=== PATIENT | female | born 1940 | race Caucasian/White ===

== ENCOUNTER 2017-08-10 13:50 | Emergency (ER) | payer MEDICARE, OTHER ==
[~2017-08-10] VITALS: Ht 152.4 cm; Wt 72.7 kg
[~2017-08-10 13:50] MED LIST: DILT240C94 PO; HYDR-569 PO; METH2.5T PO; RIVA1TAB PO
[2017-08-10] MEDS ORDERED: morphine 5 MG/ML injection IM ONE (15:25)
[2017-08-10] MEDS ORDERED: TETanus/Pertussis (Acell)/Diphther VAC/PF (Tdap-Adult) 0.5ml syringe IMVAC ONE (15:40)
[2017-08-10] MEDS ORDERED: HYDROmorphone 1 mg/ml syringe IV ONE (16:40)
[2017-08-10] MEDS ORDERED: HYDROmorphone inj. 0.5 MG/0.5 ML DISP.SYRIN ONE (17:17)
[2017-08-10 17:45] VITALS: BP 150/61
== END 2017-08-10 17:50 | disposition home or self-care (01) ==
LOC: ER 13:51
DX: S42.294A Other nondisplaced fracture of upper end of right humerus, initial encounter for closed fracture (principal); S42.252A Displaced fracture of greater tuberosity of left humerus, initial encounter for closed fracture; S00.31XA Abrasion of nose, initial encounter; G89.29 Other chronic pain; M54.9 Dorsalgia, unspecified; Z88.8 Allergy status to other drugs, medicaments and biological substances; Z88.0 Allergy status to penicillin; Z79.899 Other long term (current) drug therapy; W18.09XA Striking against other object with subsequent fall, initial encounter; Y93.01 Activity, walking, marching and hiking; Y92.89 Other specified places as the place of occurrence of the external cause; Y99.9 Unspecified external cause status
CPT/HCPCS: 29105; 73020; 96374; 96375; 99284; A4565; J1170; J2270; 90715

== ENCOUNTER 2017-08-22 10:47 | Outpatient (CLI) | payer MEDICARE, OTHER ==
[2017-08-22 11:21] VITALS: BP 137/68
== END 2017-08-22 12:20 | disposition home or self-care (01) ==
LOC: ORTHO 10:47
PROVIDERS: ATTEND Nurse Practitioner Family
DX: S42.212A Unspecified displaced fracture of surgical neck of left humerus, initial encounter for closed fracture (principal); S42.214A Unspecified nondisplaced fracture of surgical neck of right humerus, initial encounter for closed fracture; G89.29 Other chronic pain; I48.91 Unspecified atrial fibrillation; Z88.0 Allergy status to penicillin; Z88.8 Allergy status to other drugs, medicaments and biological substances; X58.XXXA Exposure to other specified factors, initial encounter; Y93.89 Activity, other specified; Y92.89 Other specified places as the place of occurrence of the external cause; Y99.8 Other external cause status
CPT/HCPCS: 73030

== ENCOUNTER 2017-09-01 08:24 | Inpatient (IN) | payer MEDICARE, OTHER ==
[~2017-09-01] VITALS: Ht 154.9 cm; Wt 82.4 kg
[2017-09-01] VITALS (21 sets, daily range): BP systolic 123–169; BP diastolic 57–78
[2017-09-01] MEDS ORDERED: HYDROmorphone 2mg/ml vial IV PRN (08:45)
[2017-09-01] MEDS ORDERED: normal saline 1000ML IV soln IVB ONE ×2 (09:10→10:30)
[2017-09-01] MEDS ORDERED: diltiazem 5mg/ml 5ml inj. IV ONE (09:50)
[2017-09-01 09:54] LABS: MEAN CORPUSCULAR HEMOGLOBIN 37.4 PG (27.0-31.0); MEAN CORPUSCULAR HGB CONC 35.1 % (33.0-36.5); MEAN CORPUSCULAR VOLUME 106.5 FL (78-98); MEAN PLATELET VOLUME 9.9 FL (7.4-10.4); RED BLOOD COUNT 1.24 X10'6 (4.20-5.60); RED CELL DISTRIBUTION WIDTH 15.3 % (11.5-14.5)
[2017-09-01 10:10] LABS: HEMATOCRIT 13.2 % (35.0-45.0); HEMOGLOBIN 4.6 g/dl (12.0-16.0); PLATELET COUNT 13 X10'3 (140-440)
[2017-09-01 10:16] LABS: CLARITY,URINE CLEAR (Clear); GLUCOSE, URINE NEGATIVE (Neg); KETONES,URINE NEGATIVE (Neg); LEUKOCYTE ESTERASE ,URINE NEGATIVE (Neg); NITRITES, URINE NEGATIVE (Neg); OCCULT BLOOD,URINE NEGATIVE (Neg); PROTEIN,URINE NEGATIVE (Neg)
[2017-09-01 10:19] LABS: COLOR,URINE DARK YELLOW (Yellow); UA COLLECTION TYPE STRAIGHT CATH
[2017-09-01 10:21] LABS: ALANINE AMINOTRANSFERASE 18 U/L (12-78); ALBUMIN/GLOBULIN RATIO 0.6 (1.1-1.5); ALKALINE PHOSPHATASE 89 IU/L (46-116); ANION GAP 4 (8-16); ASPARTATE AMINO TRANSFERASE 23 U/L (10-37); BILIRUBIN,TOTAL 1.3 MG/DL (0.1-1.0); BLOOD UREA NITROGEN 44 MG/DL (7-18); BUN/CREATININE RATIO 36.7 (6.6-38.0); CALCIUM 7.8 MG/DL (8.5-10.1); CHLORIDE 105 MMOL/L (99-107); GLUCOSE 150 MG/DL (70-104); POTASSIUM 4.6 MMOL/L (3.5-5.1); SODIUM 141 MMOL/L (135-145); TOTAL CARBON DIOXIDE 31.9 MMOL/L (24-32); TOTAL PROTEIN 5.6 G/DL (6.4-8.2); eGFR 44 ML/MIN
[2017-09-01 10:36] LABS: TOTAL CELLS COUNTED 100
[2017-09-01 10:38] LABS: ANISOCYTOSIS 1+; ELLIPTOCYTES 1+; HYPOCHROMASIA 1+; PLATELET ESTIMATE DECREASED; POLYCHROMASIA FEW; TEAR DROP CELLS 1+
[2017-09-01 11:29] LABS: BASOPHILS % (AUTO) 0.3 % (0-1); EOSINOPHILS # (AUTO) 0.1 X10'3 (0-0.9); EOSINOPHILS % (AUTO) 9.7 % (0-6); LYMPHOCYTES # (AUTO) 0.4 X10'3 (1.1-4.8); LYMPHOCYTES % (AUTO) 44.1 % (21-51); MEAN CORPUSCULAR HEMOGLOBIN 37.1 PG (27.0-31.0); MEAN CORPUSCULAR HGB CONC 34.8 % (33.0-36.5); MEAN CORPUSCULAR VOLUME 106.6 FL (78-98); MEAN PLATELET VOLUME 9.8 FL (7.4-10.4); MONOCYTES % (AUTO) 0.8 % (2-12); NEUTROPHILS # (AUTO) 0.4 X10'3 (1.8-7.7); NEUTROPHILS % (AUTO) 45.1 % (42-75); RED CELL DISTRIBUTION WIDTH 16.7 % (11.5-14.5)
[2017-09-01 11:32] LABS: HEMATOCRIT 13.9 % (35.0-45.0); HEMOGLOBIN 4.8 g/dl (12.0-16.0); PLATELET COUNT 14 X10'3 (140-440)
[2017-09-01] MEDS ORDERED: ondansetron/PF 4mg/2ml inj IV PRN (11:55)
[2017-09-01] MEDS ORDERED: potassium Cl 40MEQ/NS 500ml 500 ML IV PRN ×2 (11:55)
[2017-09-01] MEDS ORDERED: acetaminophen 325mg tablet PO PRN (11:55)
[2017-09-01] MEDS ORDERED: potassium Cl 20 mEq SR tablet PO PRN ×2 (11:55)
[2017-09-01] MEDS ORDERED: HYDROmorphone 2mg/ml vial IV ONE (12:00)
[2017-09-01] MEDS ORDERED: SOTA80TA PO (12:32)
[2017-09-01] MEDS ORDERED: HYDR-565 PO (12:32)
[2017-09-01 13:23] LABS: OCCULT BLOOD STOOL POSITIVE (Neg)
[2017-09-01] MEDS: normal saline 1000ml 1,000 ML IV SCH (13:25)
[2017-09-01] MEDS: morphine 2 MG/ML inj. syringe IV PRN ×5 (14:07→23:06)
[2017-09-01] MEDS: TBO-filgrastim 480 MCG/0.8ml syringe SQ SCH (17:48)
[2017-09-01] MEDS: HYDROcodone/acetaminophen 5mg/325mg tablet PO SCH (20:50)
[2017-09-01] MEDS: docusate sod 100mg capsule PO SCH (20:50)
[2017-09-01 21:30] LABS: MEAN CORPUSCULAR HEMOGLOBIN 34.2 PG (27.0-31.0); MEAN CORPUSCULAR HGB CONC 35.6 % (33.0-36.5); MEAN PLATELET VOLUME 7.4 FL (7.4-10.4); PLATELET COUNT 63 X10'3 (140-440); RED BLOOD COUNT 2.02 X10'6 (4.20-5.60); RED CELL DISTRIBUTION WIDTH 18.4 % (11.5-14.5)
[2017-09-01 21:39] LABS: HEMATOCRIT 19.4 % (35.0-45.0); HEMOGLOBIN 6.9 g/dl (12.0-16.0); WHITE BLOOD COUNT 0.5 X10'3 (4.5-11.0)
[2017-09-02] VITALS (28 sets, daily range): BP systolic 81–192; BP diastolic 60–86
[2017-09-02] MEDS: morphine 2 MG/ML inj. syringe IV PRN ×5 (01:43→23:59)
[2017-09-02] MEDS: acetaminophen 325mg tablet PO PRN ×2 (03:45→06:20)
[2017-09-02 05:41] LABS: HEMOGLOBIN 8.2 g/dl (12.0-16.0); MEAN CORPUSCULAR HEMOGLOBIN 33.9 PG (27.0-31.0); MEAN CORPUSCULAR HGB CONC 35.7 % (33.0-36.5); MEAN PLATELET VOLUME 7.8 FL (7.4-10.4); RED BLOOD COUNT 2.42 X10'6 (4.20-5.60); RED CELL DISTRIBUTION WIDTH 17.5 % (11.5-14.5)
[2017-09-02] MEDS: normal saline 1000ml 1,000 ML IV SCH ×2 (06:00→14:31)
[2017-09-02 06:31] LABS: WHITE BLOOD COUNT 0.4 X10'3 (4.5-11.0)
[2017-09-02 06:32] LABS: PLATELET COUNT 48 X10'3 (140-440)
[2017-09-02 06:39] LABS: ALANINE AMINOTRANSFERASE 20 U/L (12-78); ALBUMIN 2.2 G/DL (3.4-5.0); ALKALINE PHOSPHATASE 79 IU/L (46-116); ANION GAP 6 (8-16); ASPARTATE AMINO TRANSFERASE 24 U/L (10-37); BLOOD UREA NITROGEN 39 MG/DL (7-18); BUN/CREATININE RATIO 43.3 (6.6-38.0); CALCIUM 7.7 MG/DL (8.5-10.1); CHLORIDE 107 MMOL/L (99-107); GLUCOSE 125 MG/DL (70-104); POTASSIUM 4.4 MMOL/L (3.5-5.1); SODIUM 141 MMOL/L (135-145); TOTAL CARBON DIOXIDE 28.3 MMOL/L (24-32); eGFR 61 ML/MIN
[2017-09-02 06:41] LABS: ALBUMIN/GLOBULIN RATIO 0.6 (1.1-1.5); PHOSPHORUS 3.5 MG/DL (2.3-4.5); TOTAL PROTEIN 5.7 G/DL (6.4-8.2)
[2017-09-02 07:03] LABS: ANISOCYTOSIS 2+; LARGE PLATELETS FEW; PLATELET ESTIMATE DECREASED; TOTAL CELLS COUNTED 100
[2017-09-02] MEDS: docusate sod 100mg capsule PO SCH ×2 (07:37→20:00)
[2017-09-02] MEDS: HYDROcodone/acetaminophen 5mg/325mg tablet PO SCH (07:37)
[2017-09-02] MEDS: TBO-filgrastim 480 MCG/0.8ml syringe SQ SCH (09:23)
[2017-09-02] MEDS: HYDROcodone/acetaminophen 10/325mg tab PO SCH ×5 (10:30→23:45)
[2017-09-02] MEDS: sotalol 80mg tablet PO SCH (12:40)
[2017-09-02 17:55] LABS: HEMOGLOBIN 7.8 g/dl (12.0-16.0); MEAN CORPUSCULAR HEMOGLOBIN 34.4 PG (27.0-31.0); MEAN CORPUSCULAR HGB CONC 36.1 % (33.0-36.5); MEAN CORPUSCULAR VOLUME 95.1 FL (78-98); MEAN PLATELET VOLUME 7.7 FL (7.4-10.4); RED BLOOD COUNT 2.28 X10'6 (4.20-5.60); RED CELL DISTRIBUTION WIDTH 17.6 % (11.5-14.5)
[2017-09-02 18:08] LABS: WHITE BLOOD COUNT 0.2 X10'3 (4.5-11.0)
[2017-09-02 18:09] LABS: HEMATOCRIT 21.6 % (35.0-45.0); PLATELET COUNT 31 X10'3 (140-440)
[2017-09-03] VITALS (23 sets, daily range): BP systolic 109–175; BP diastolic 60–85
[2017-09-03] MEDS: morphine 2 MG/ML inj. syringe IV PRN ×2 (03:24→04:36)
[2017-09-03] MEDS: normal saline 1000ml 1,000 ML IV SCH ×2 (04:28→07:31)
[2017-09-03 05:32] LABS: HEMATOCRIT 23.7 % (35.0-45.0); HEMOGLOBIN 8.2 g/dl (12.0-16.0); MEAN CORPUSCULAR HEMOGLOBIN 33.3 PG (27.0-31.0); MEAN CORPUSCULAR HGB CONC 34.8 % (33.0-36.5); MEAN CORPUSCULAR VOLUME 95.7 FL (78-98); MEAN PLATELET VOLUME 7.8 FL (7.4-10.4); RED BLOOD COUNT 2.47 X10'6 (4.20-5.60); RED CELL DISTRIBUTION WIDTH 17.7 % (11.5-14.5)
[2017-09-03 06:02] LABS: PLATELET COUNT 25 X10'3 (140-440); WHITE BLOOD COUNT 0.3 X10'3 (4.5-11.0)
[2017-09-03 06:15] LABS: PLATELET ESTIMATE DECREASED; TOTAL CELLS COUNTED 25
[2017-09-03 06:16] LABS: ANISOCYTOSIS 2+
[2017-09-03 06:30] LABS: ALANINE AMINOTRANSFERASE 16 U/L (12-78); ALKALINE PHOSPHATASE 68 IU/L (46-116); ANION GAP 6 (8-16); ASPARTATE AMINO TRANSFERASE 19 U/L (10-37); BILIRUBIN,TOTAL 4.8 MG/DL (0.1-1.0); BLOOD UREA NITROGEN 34 MG/DL (7-18); BUN/CREATININE RATIO 37.8 (6.6-38.0); CALCIUM 7.8 MG/DL (8.5-10.1); CHLORIDE 108 MMOL/L (99-107); GLUCOSE 134 MG/DL (70-104); MAGNESIUM 2.8 MG/DL (1.5-2.4); POTASSIUM 4.3 MMOL/L (3.5-5.1); SODIUM 143 MMOL/L (135-145); TOTAL CARBON DIOXIDE 28.6 MMOL/L (24-32); eGFR 61 ML/MIN
[2017-09-03 06:40] LABS: ALBUMIN/GLOBULIN RATIO 0.5 (1.1-1.5); PHOSPHORUS 3.5 MG/DL (2.3-4.5); TOTAL PROTEIN 5.8 G/DL (6.4-8.2)
[2017-09-03] MEDS: HYDROcodone/acetaminophen 10/325mg tab PO SCH ×6 (07:36→23:00)
[2017-09-03] MEDS: sotalol 80mg tablet PO SCH (07:36)
[2017-09-03] MEDS: docusate sod 100mg capsule PO SCH ×2 (07:37→20:00)
[2017-09-03] MEDS ORDERED: sotalol 80mg tablet PO SCH (08:00)
[2017-09-03] MEDS: TBO-filgrastim 480 MCG/0.8ml syringe SQ SCH (08:24)
[2017-09-03] MEDS ORDERED: vancomycin/NS 1 GM ADD-VANTAGE 250 ML IV ONE (08:55)
[2017-09-03] MEDS ORDERED: fluconazole/NS 400mg/200ml bag 200 ML IV ONE (09:09)
[2017-09-03] MEDS: Protein Shake (high protein) 240ml (8oz) cup PO SCH ×2 (13:00→18:00)
[2017-09-03] MEDS: aztreonam inj. 1,000 MG in normal saline 100ml IV soln 100 ML IV SCH (15:29)
[2017-09-03] MEDS: lactobacillus rhamnosus 10,000 MMU CELLS/CAPSULE PO SCH (16:59)
[2017-09-03] MEDS ORDERED: vancomycin/NS 1 GM ADD-VANTAGE 250 ML IV SCH (20:00)
[2017-09-04] VITALS (29 sets, daily range): BP systolic 105–163; BP diastolic 66–88
[2017-09-04] MEDS: normal saline 1000ml 1,000 ML IV SCH ×2 (00:11→20:10)
[2017-09-04] MEDS: aztreonam inj. 1,000 MG in normal saline 100ml IV soln 100 ML IV SCH ×4 (00:11→23:45)
[2017-09-04] MEDS: morphine 2 MG/ML inj. syringe IV PRN ×2 (05:16→13:40)
[2017-09-04 06:01] LABS: BASOPHILS % (AUTO) 0 % (0-1); EOSINOPHILS # (AUTO) 0.1 X10'3 (0-0.9); EOSINOPHILS % (AUTO) 26.6 % (0-6); HEMATOCRIT 23.4 % (35.0-45.0); HEMOGLOBIN 8.2 g/dl (12.0-16.0); LYMPHOCYTES # (AUTO) 0.2 X10'3 (1.1-4.8); LYMPHOCYTES % (AUTO) 61.3 % (21-51); MEAN CORPUSCULAR HEMOGLOBIN 33.8 PG (27.0-31.0); MEAN CORPUSCULAR VOLUME 96.6 FL (78-98); MEAN PLATELET VOLUME 9.5 FL (7.4-10.4); MONOCYTES % (AUTO) 2.6 % (2-12); NEUTROPHILS % (AUTO) 9.5 % (42-75); RED BLOOD COUNT 2.42 X10'6 (4.20-5.60); RED CELL DISTRIBUTION WIDTH 17.1 % (11.5-14.5)
[2017-09-04 06:10] LABS: ALANINE AMINOTRANSFERASE 19 U/L (12-78); ALBUMIN 1.8 G/DL (3.4-5.0); ALKALINE PHOSPHATASE 64 IU/L (46-116); ANION GAP 6 (8-16); ASPARTATE AMINO TRANSFERASE 15 U/L (10-37); BILIRUBIN,TOTAL 5.2 MG/DL (0.1-1.0); BLOOD UREA NITROGEN 40 MG/DL (7-18); CALCIUM 7.8 MG/DL (8.5-10.1); CHLORIDE 108 MMOL/L (99-107); GLUCOSE 125 MG/DL (70-104); MAGNESIUM 2.6 MG/DL (1.5-2.4); SODIUM 141 MMOL/L (135-145); TOTAL CARBON DIOXIDE 26.6 MMOL/L (24-32); eGFR 54 ML/MIN
[2017-09-04 06:14] LABS: ALBUMIN/GLOBULIN RATIO 0.5 (1.1-1.5); PHOSPHORUS 3.2 MG/DL (2.3-4.5); TOTAL PROTEIN 5.7 G/DL (6.4-8.2)
[2017-09-04 06:59] LABS: PLATELET COUNT 12 X10'3 (140-440); WHITE BLOOD COUNT 0.3 X10'3 (4.5-11.0)
[2017-09-04] MEDS: fluconazole-Diflucan 200mg/NS 100 ML IV SCH (07:56)
[2017-09-04] MEDS: TBO-filgrastim 480 MCG/0.8ml syringe SQ SCH (07:56)
[2017-09-04] MEDS: sotalol 80mg tablet PO SCH (07:56)
[2017-09-04] MEDS: HYDROcodone/acetaminophen 10/325mg tab PO SCH ×3 (07:57→15:00)
[2017-09-04] MEDS: docusate sod 100mg capsule PO SCH ×2 (07:57→20:00)
[2017-09-04] MEDS: Protein Shake (high protein) 240ml (8oz) cup PO SCH ×3 (07:57→18:06)
[2017-09-04] MEDS: lactobacillus rhamnosus 10,000 MMU CELLS/CAPSULE PO SCH ×2 (07:57→16:49)
[2017-09-04] MEDS: vancomycin inj 1,250 MG in normal saline 250ml IV soln 250 ML IV SCH (11:42)
[2017-09-04] MEDS: sucralfate 1 gm tablet PO SCH ×2 (16:50→20:11)
[2017-09-04] MEDS ORDERED: HYDROcodone/acetaminophen 10/325mg tab PO PRN (18:00)
[2017-09-05] VITALS (8 sets, daily range): BP systolic 124–168; BP diastolic 62–93
[2017-09-05 04:03] LABS: OCCULT BLOOD STOOL NEGATIVE (Neg)
[2017-09-05 07:20] LABS: ALANINE AMINOTRANSFERASE 22 U/L (12-78); ALBUMIN 1.7 G/DL (3.4-5.0); ALKALINE PHOSPHATASE 58 IU/L (46-116); ANION GAP 5 (8-16); ASPARTATE AMINO TRANSFERASE 13 U/L (10-37); BILIRUBIN,TOTAL 4.5 MG/DL (0.1-1.0); BLOOD UREA NITROGEN 39 MG/DL (7-18); BUN/CREATININE RATIO 48.8 (6.6-38.0); CALCIUM 7.7 MG/DL (8.5-10.1); CHLORIDE 114 MMOL/L (99-107); GLUCOSE 146 MG/DL (70-104); MAGNESIUM 2.5 MG/DL (1.5-2.4); POTASSIUM 3.4 MMOL/L (3.5-5.1); SODIUM 145 MMOL/L (135-145); TOTAL CARBON DIOXIDE 26.4 MMOL/L (24-32); eGFR 70 ML/MIN
[2017-09-05 07:21] LABS: ALBUMIN/GLOBULIN RATIO 0.5 (1.1-1.5); PHOSPHORUS 2.6 MG/DL (2.3-4.5); TOTAL PROTEIN 5.2 G/DL (6.4-8.2)
[2017-09-05] MEDS: lactobacillus rhamnosus 10,000 MMU CELLS/CAPSULE PO SCH (07:30)
[2017-09-05 07:41] LABS: BASOPHILS % (AUTO) 0.1 % (0-1); EOSINOPHILS # (AUTO) 0.1 X10'3 (0-0.9); EOSINOPHILS % (AUTO) 30.6 % (0-6); HEMOGLOBIN 7.4 g/dl (12.0-16.0); LYMPHOCYTES # (AUTO) 0.3 X10'3 (1.1-4.8); LYMPHOCYTES % (AUTO) 62.7 % (21-51); MEAN CORPUSCULAR HEMOGLOBIN 33.8 PG (27.0-31.0); MEAN CORPUSCULAR HGB CONC 35.7 % (33.0-36.5); MEAN CORPUSCULAR VOLUME 94.7 FL (78-98); MEAN PLATELET VOLUME 9.4 FL (7.4-10.4); MONOCYTES % (AUTO) 0.2 % (2-12); NEUTROPHILS % (AUTO) 6.4 % (42-75); RED CELL DISTRIBUTION WIDTH 17.1 % (11.5-14.5)
[2017-09-05 07:56] LABS: HEMATOCRIT 20.8 % (35.0-45.0); PLATELET COUNT 43 X10'3 (140-440); WHITE BLOOD COUNT 0.4 X10'3 (4.5-11.0)
[2017-09-05 07:57] LABS: ANISOCYTOSIS 1+; EOSINOPHILS % (MANUAL) 32 % (0-6); LYMPHOCYTES % (MANUAL) 64 % (21-51); NEUTROPHILS % (MANUAL) 4 % (42-75); PLATELET ESTIMATE DECREASED
[2017-09-05 07:58] LABS: TOTAL CELLS COUNTED 25
[2017-09-05] MEDS: docusate sod 100mg capsule PO SCH (08:00)
[2017-09-05] MEDS: fluconazole-Diflucan 200mg/NS 100 ML IV SCH (08:00)
[2017-09-05] MEDS: Protein Shake (high protein) 240ml (8oz) cup PO SCH ×3 (08:00→18:00)
[2017-09-05] MEDS: sucralfate 1 gm tablet PO SCH ×3 (08:59→17:00)
[2017-09-05] MEDS: aztreonam inj. 1,000 MG in normal saline 100ml IV soln 100 ML IV SCH ×2 (08:59→16:00)
[2017-09-05] MEDS: sotalol 80mg tablet PO SCH (08:59)
[2017-09-05] MEDS: TBO-filgrastim 480 MCG/0.8ml syringe SQ SCH (08:59)
[2017-09-05] MEDS: normal saline 1000ml 1,000 ML IV SCH ×2 (09:11→22:31)
[2017-09-05 09:59] LABS: C DIFF ANTIGEN POSITIVE (NEGATIVE); C DIFF SPECIMEN=DIARRHEA? ACCEPTABLE; C DIFFICILE TOXINS A&B POSITIVE (Neg)
[2017-09-05] MEDS: vancomycin inj 1,250 MG in normal saline 250ml IV soln 250 ML IV SCH (11:49)
[2017-09-05] MEDS: metroNIDAZOLE-Flagyl 500mg/NS 100 ML IV SCH (17:45)
[2017-09-05] MEDS ORDERED: diltiazem 5mg/ml 5ml inj. IV ONE (17:45)
[2017-09-05] MEDS ORDERED: iohexol 350MG/ML 100ml bottle IV ONE (19:27)
[2017-09-05] MEDS: diltiazem-D5W 125mg/125ml 125 ML IV SCH (21:56)
[2017-09-05 21:58] LABS: PARTIAL THROMBOPLASTIN TIME 39 SECONDS (22-32); PROTHROMBIN TIME 19.8 SECONDS (9.0-12.0)
[2017-09-05] MEDS: morphine 5 MG/ML injection IV PRN (23:59)
[2017-09-06] VITALS (16 sets, daily range): BP systolic 100–150; BP diastolic 55–94
[2017-09-06] MEDS: pantoprazole 40 MG vial IV SCH ×2 (00:04→08:06)
[2017-09-06] MEDS: metroNIDAZOLE-Flagyl 500mg/NS 100 ML IV SCH ×3 (00:05→16:03)
[2017-09-06] MEDS: morphine 5 MG/ML injection IV PRN ×4 (05:12→21:01)
[2017-09-06 06:05] LABS: HEMATOCRIT 22.2 % (35.0-45.0); HEMOGLOBIN 7.7 g/dl (12.0-16.0); MEAN CORPUSCULAR HEMOGLOBIN 33.4 PG (27.0-31.0); MEAN CORPUSCULAR HGB CONC 34.7 % (33.0-36.5); MEAN CORPUSCULAR VOLUME 96.3 FL (78-98); MEAN PLATELET VOLUME 10.3 FL (7.4-10.4); RED BLOOD COUNT 2.31 X10'6 (4.20-5.60); RED CELL DISTRIBUTION WIDTH 17.2 % (11.5-14.5)
[2017-09-06 06:37] LABS: PLATELET COUNT 22 X10'3 (140-440); WHITE BLOOD COUNT 0.5 X10'3 (4.5-11.0)
[2017-09-06 07:01] LABS: EOSINOPHILS % (MANUAL) 12 % (0-6); LYMPHOCYTES % (MANUAL) 72 % (21-51); NEUTROPHILS % (MANUAL) 4 % (42-75); PLATELET ESTIMATE DECREASED; TOTAL CELLS COUNTED 50
[2017-09-06 07:02] LABS: ANISOCYTOSIS 1+; BURR CELLS 1+
[2017-09-06 07:21] LABS: ALANINE AMINOTRANSFERASE 17 U/L (12-78); ALBUMIN 1.4 G/DL (3.4-5.0); ALBUMIN/GLOBULIN RATIO 0.4 (1.1-1.5); ALKALINE PHOSPHATASE 60 IU/L (46-116); ANION GAP 9 (8-16); ASPARTATE AMINO TRANSFERASE 15 U/L (10-37); BILIRUBIN,TOTAL 5.9 MG/DL (0.1-1.0); BLOOD UREA NITROGEN 35 MG/DL (7-18); CHLORIDE 118 MMOL/L (99-107); GLUCOSE 132 MG/DL (70-104); MAGNESIUM 2.4 MG/DL (1.5-2.4); PHOSPHORUS 2.9 MG/DL (2.3-4.5); SODIUM 151 MMOL/L (135-145); TOTAL CARBON DIOXIDE 23.9 MMOL/L (24-32); TOTAL PROTEIN 4.7 G/DL (6.4-8.2); eGFR 81 ML/MIN
[2017-09-06 07:31] LABS: SMUDGE CELLS 1+
[2017-09-06] MEDS: Protein Shake (high protein) 240ml (8oz) cup PO SCH ×3 (08:00→18:00)
[2017-09-06] MEDS: sotalol 80mg tablet PO SCH (08:00)
[2017-09-06] MEDS: TBO-filgrastim 480 MCG/0.8ml syringe SQ SCH (08:06)
[2017-09-06] MEDS: normal saline 1000ml 1,000 ML IV SCH (08:10)
[2017-09-06] MEDS ORDERED: folic acid 1mg tablet PO SCH (08:10)
[2017-09-06] MEDS: potassium CL 20mEq in D5-1/2NS 1,000 ML IV SCH ×2 (10:25→18:15)
[2017-09-06] MEDS: folic acid 1mg/0.2ml inj IV SCH (10:25)
[2017-09-06] MEDS: LIDOcaine 1% 30ml vial 5 ML in potassium Cl 40MEQ/NS 500ml 500 ML IV PRN ×2 (10:27→16:04)
[2017-09-06] MEDS ORDERED: VANCOMYCIN LEVEL IV ONE (10:30)
[2017-09-06] MEDS: diltiazem-D5W 125mg/125ml 125 ML IV SCH (13:21)
[2017-09-06] MEDS ORDERED: vancomycin inj 1,250 MG in normal saline 250ml IV soln 250 ML IV SCH (17:00)
[2017-09-06] MEDS ORDERED: vancomycin 125mg/5ml ORAL solution 5ml UD bottle PO SCH (18:07)
[2017-09-07] VITALS (20 sets, daily range): BP systolic 107–141; BP diastolic 40–125
[2017-09-07] MEDS: diltiazem-D5W 125mg/125ml 125 ML IV SCH ×3 (00:31→19:07)
[2017-09-07] MEDS: metroNIDAZOLE-Flagyl 500mg/NS 100 ML IV SCH ×3 (00:31→17:44)
[2017-09-07] MEDS: potassium CL 20mEq in D5-1/2NS 1,000 ML IV SCH ×2 (04:15→14:39)
[2017-09-07] MEDS: morphine 5 MG/ML injection IV PRN ×2 (05:16→13:29)
[2017-09-07 06:25] LABS: HEMATOCRIT 23.6 % (35.0-45.0); HEMOGLOBIN 8.3 g/dl (12.0-16.0); MEAN CORPUSCULAR HEMOGLOBIN 33.5 PG (27.0-31.0); MEAN CORPUSCULAR HGB CONC 35.1 % (33.0-36.5); MEAN CORPUSCULAR VOLUME 95.4 FL (78-98); MEAN PLATELET VOLUME 11.3 FL (7.4-10.4); RED BLOOD COUNT 2.48 X10'6 (4.20-5.60); RED CELL DISTRIBUTION WIDTH 17.3 % (11.5-14.5)
[2017-09-07 07:16] LABS: PLATELET COUNT 7 X10'3 (140-440); WHITE BLOOD COUNT 0.7 X10'3 (4.5-11.0)
[2017-09-07 07:27] LABS: ANISOCYTOSIS 1+; BURR CELLS 1+; PLATELET ESTIMATE DECREASED; SCHISTOCYTES FEW; TOTAL CELLS COUNTED 100
[2017-09-07 07:41] LABS: ALANINE AMINOTRANSFERASE 16 U/L (12-78); ALBUMIN 1.4 G/DL (3.4-5.0); ALKALINE PHOSPHATASE 61 IU/L (46-116); ANION GAP 10 (8-16); ASPARTATE AMINO TRANSFERASE 11 U/L (10-37); BLOOD UREA NITROGEN 48 MG/DL (7-18); CALCIUM 7.9 MG/DL (8.5-10.1); CHLORIDE 122 MMOL/L (99-107); GLUCOSE 192 MG/DL (70-104); MAGNESIUM 2.4 MG/DL (1.5-2.4); POTASSIUM 4.1 MMOL/L (3.5-5.1); SODIUM 154 MMOL/L (135-145); TOTAL CARBON DIOXIDE 22.3 MMOL/L (24-32); eGFR 54 ML/MIN
[2017-09-07 07:57] LABS: ALBUMIN/GLOBULIN RATIO 0.4 (1.1-1.5); TOTAL PROTEIN 4.7 G/DL (6.4-8.2)
[2017-09-07] MEDS: Protein Shake (high protein) 240ml (8oz) cup PO SCH ×3 (07:58→17:20)
[2017-09-07] MEDS: sotalol 80mg tablet PO SCH (07:58)
[2017-09-07] MEDS: pantoprazole 40 MG vial IV SCH (08:00)
[2017-09-07 09:12] LABS: D-DIMER 6.12 MG/L FEU (0-0.50); INR 2.1 INR; PARTIAL THROMBOPLASTIN TIME 42 SECONDS (22-32); PROTHROMBIN TIME 21.2 SECONDS (9.0-12.0)
[2017-09-07 09:25] LABS: PLATELET COUNT 7 X10'3 (140-440)
[2017-09-07] MEDS: TBO-filgrastim 480 MCG/0.8ml syringe SQ SCH (09:36)
[2017-09-07] MEDS: folic acid 1mg/0.2ml inj IV SCH (09:36)
[2017-09-07] MEDS ORDERED: vancomycin inj 1,250 MG in normal saline 250ml IV soln 250 ML IV SCH (17:00)
[2017-09-08] VITALS (9 sets, daily range): BP systolic 94–119; BP diastolic 42–87
[2017-09-08] MEDS: potassium CL 20mEq in D5-1/2NS 1,000 ML IV SCH (00:26)
[2017-09-08] MEDS: metroNIDAZOLE-Flagyl 500mg/NS 100 ML IV SCH ×3 (00:26→15:45)
[2017-09-08] MEDS: morphine 5 MG/ML injection IV PRN ×4 (00:33→15:45)
[2017-09-08] MEDS ORDERED: VANCOMYCIN LEVEL IV NR (04:30)
[2017-09-08 05:01] LABS: HEMOGLOBIN 7.1 g/dl (12.0-16.0); MEAN CORPUSCULAR HEMOGLOBIN 33.3 PG (27.0-31.0); MEAN CORPUSCULAR HGB CONC 34.7 % (33.0-36.5); MEAN CORPUSCULAR VOLUME 95.8 FL (78-98); MEAN PLATELET VOLUME 8.6 FL (7.4-10.4); RED BLOOD COUNT 2.14 X10'6 (4.20-5.60); RED CELL DISTRIBUTION WIDTH 17.6 % (11.5-14.5)
[2017-09-08 05:19] LABS: ALANINE AMINOTRANSFERASE 11 U/L (12-78); ALBUMIN 1.2 G/DL (3.4-5.0); ALBUMIN/GLOBULIN RATIO 0.4 (1.1-1.5); ALKALINE PHOSPHATASE 54 IU/L (46-116); ANION GAP 10 (8-16); ASPARTATE AMINO TRANSFERASE 9 U/L (10-37); BILIRUBIN,TOTAL 9.7 MG/DL (0.1-1.0); BLOOD UREA NITROGEN 61 MG/DL (7-18); CALCIUM 7.7 MG/DL (8.5-10.1); CHLORIDE 124 MMOL/L (99-107); GLUCOSE 178 MG/DL (70-104); MAGNESIUM 2.4 MG/DL (1.5-2.4); PHOSPHORUS 2.8 MG/DL (2.3-4.5); TOTAL CARBON DIOXIDE 21.4 MMOL/L (24-32); TOTAL PROTEIN 4.2 G/DL (6.4-8.2); eGFR 54 ML/MIN
[2017-09-08 05:22] LABS: SODIUM 155 MMOL/L (135-145)
[2017-09-08] MEDS ORDERED: potassium Cl 20mEq in NS 1,000 ML IV ONE (05:37)
[2017-09-08 06:01] LABS: HEMATOCRIT 20.5 % (35.0-45.0)
[2017-09-08 06:02] LABS: PLATELET COUNT 3 X10'3 (140-440)
[2017-09-08] MEDS: Potassium Cl inj 20 MEQ in normal saline 1000ml 990 ML IV SCH ×2 (06:21→15:35)
[2017-09-08] MEDS: TBO-filgrastim 480 MCG/0.8ml syringe SQ SCH (07:32)
[2017-09-08] MEDS: pantoprazole 40 MG vial IV SCH (07:32)
[2017-09-08] MEDS: Protein Shake (high protein) 240ml (8oz) cup PO SCH ×2 (08:00→09:30)
[2017-09-08] MEDS: sotalol 80mg tablet PO SCH (08:00)
[2017-09-08 08:27] LABS: TOTAL CELLS COUNTED 100
[2017-09-08 08:29] LABS: ANISOCYTOSIS 2+; PLATELET ESTIMATE DECREASED
[2017-09-08 08:30] LABS: BURR CELLS 2+; SCHISTOCYTES FEW; TARGET CELLS 1+
[2017-09-08] MEDS: folic acid 1mg/0.2ml inj IV SCH (10:17)
[2017-09-08] MEDS ORDERED: scopolamine 1.5mg patch.TD72 TD SCH (16:35)
[2017-09-08] MEDS ORDERED: morphine 2 MG/ML inj. syringe IV PRN ×2 (16:40)
[2017-09-08] MEDS ORDERED: LORazepam 2 mg/ml vial IV PRN (16:40)
[2017-09-08] MEDS ORDERED: lactobacillus rhamnosus 10,000 MMU CELLS/CAPSULE PO SCH (17:30)
[2017-09-09] MEDS: Potassium Cl inj 20 MEQ in normal saline 1000ml 990 ML IV SCH (01:35)
[2017-09-09 06:35] VITALS: BP 90/47
[2017-09-09] MEDS ORDERED: morphine 10mg/0.5ml (conc. morphine) oral syringe PO PRN (08:35)
[2017-09-09] MEDS ORDERED: morphine 2 MG/ML inj. syringe IV PRN (08:40)
[2017-09-09] MEDS: morphine 2 MG/ML inj. syringe IV PRN ×2 (10:53→14:31)
[2017-09-09] MEDS ORDERED: VANCOMYCIN LEVEL IV NR (16:30)
== END 2017-09-09 20:30 | disposition expired | DRG 871 ==
LOC: ER 08:24 → ED HOLD 11:51 → CICU 2S 13:19 → ORTHO 4S 09-05 01:12 → PCU 3S 09-05 20:25
PROVIDERS: ADMIT Internal Medicine Critical Care Medicine; ATTEND Family Medicine
PROC: 30233N1 Transfusion of Nonautologous Red Blood Cells into Peripheral Vein, Percutaneous Approach (ICD-10-PCS; 2017-09-01)
PROC: 30233R1 Transfusion of Nonautologous Platelets into Peripheral Vein, Percutaneous Approach (ICD-10-PCS; 2017-09-01)
PROC: 30233L1 Transfusion of Nonautologous Fresh Plasma into Peripheral Vein, Percutaneous Approach (ICD-10-PCS; principal; 2017-09-02)
PROC: 30233K1 Transfusion of Nonautologous Frozen Plasma into Peripheral Vein, Percutaneous Approach (ICD-10-PCS; 2017-09-02)
PROC: 30233R1 Transfusion of Nonautologous Platelets into Peripheral Vein, Percutaneous Approach (ICD-10-PCS; 2017-09-04)
PROC: 07DR3ZX Extraction of Iliac Bone Marrow, Percutaneous Approach, Diagnostic (ICD-10-PCS; 2017-09-04)
PROC: B32T1ZZ Computerized Tomography (CT Scan) of Left Pulmonary Artery using Low Osmolar Contrast (ICD-10-PCS; 2017-09-05)
PROC: B3201ZZ Computerized Tomography (CT Scan) of Thoracic Aorta using Low Osmolar Contrast (ICD-10-PCS; 2017-09-05)
PROC: B32S1ZZ Computerized Tomography (CT Scan) of Right Pulmonary Artery using Low Osmolar Contrast (ICD-10-PCS; 2017-09-05)
PROC: BB241ZZ Computerized Tomography (CT Scan) of Bilateral Lungs using Low Osmolar Contrast (ICD-10-PCS; 2017-09-05)
PROC: BF251ZZ Computerized Tomography (CT Scan) of Liver using Low Osmolar Contrast (ICD-10-PCS; 2017-09-05)
DX: A41.9 Sepsis, unspecified organism (principal); E43 Unspecified severe protein-calorie malnutrition; L89.152 Pressure ulcer of sacral region, stage 2; A04.72 Enterocolitis due to Clostridium difficile, not specified as recurrent; D61.811 Other drug-induced pancytopenia; I24.8 Other forms of acute ischemic heart disease; I48.2 Chronic atrial fibrillation; R17 Unspecified jaundice; S42.222K 2-part displaced fracture of surgical neck of left humerus, subsequent encounter for fracture with nonunion; S42.22 2-part fracture of surgical neck of humerus; N18.3 Chronic kidney disease, stage 3 (moderate); T45.1X5A Adverse effect of antineoplastic and immunosuppressive drugs, initial encounter; E03.9 Hypothyroidism, unspecified; G89.29 Other chronic pain; E83.42 Hypomagnesemia; E87.6 Hypokalemia; H54.61 Unqualified visual loss, right eye, normal vision left eye; I12.9 Hypertensive chronic kidney disease with stage 1 through stage 4 chronic kidney disease, or unspecified chronic kidney disease; K44.9 Diaphragmatic hernia without obstruction or gangrene; L40.9 Psoriasis, unspecified; M19.90 Unspecified osteoarthritis, unspecified site; M54.9 Dorsalgia, unspecified; R47.1 Dysarthria and anarthria; R13.10 Dysphagia, unspecified; Z51.5 Encounter for palliative care; Z66 Do not resuscitate; Z68.34 Body mass index [BMI] 34.0-34.9, adult; Z90.710 Acquired absence of both cervix and uterus; Z88.0 Allergy status to penicillin; Z88.8 Allergy status to other drugs, medicaments and biological substances; Z79.899 Other long term (current) drug therapy; Z79.01 Long term (current) use of anticoagulants; Z86.711 Personal history of pulmonary embolism; Y92.89 Other specified places as the place of occurrence of the external cause
CPT/HCPCS: 36415; 36430; 70450; 71045; 71275; 73060; 76700; 80053; 81003; 82272; 83605; 83735; 83880; 84100; 84145; 84443; 84484; 85025; 85027; 85379; 85384; 85610; 85730; 86885; 86900; 86901; 86920; 86945; 87040; 87070; 87077; 87186; 87324; 87449; 92616; 93005; 96361; 96374; 97110; 97162; 97530; 97535; 99291; A4353; A4565; A4649; A6209; A6212; A6213; A6250; A6258; A9270; C1751; C1758; C9113; J1170; J1442; J1450; J2270; J3370; J3480; J3490; J7030; P9016; P9035; P9059; Q9967